=== PATIENT | female | born 1990 | race Hispanic/Latino ===

== ENCOUNTER 2022-03-12 16:27 | Emergency (ER) | payer SELFPAY ==
[2022-03-12] MEDS ORDERED: METOCLOPRAMIDE 10 MG/2mL INJ ONE (18:14)
[2022-03-12] MEDS ORDERED: DIPHENHYDRAMINE 50 MG/ML VIAL ONE (18:14)
[2022-03-12] MEDS ORDERED: NA CHLORIDE 0.9% 1,000 ML ONE (18:14)
[2022-03-12] MEDS ORDERED: dexAMETHasone 10 MG/ML VIAL ONE (18:14)
--- NOTE | 2022-03-12 18:52 | RAD REPORT ---
EXAM DESCRIPTION: CT - Head Brain Wo Cont - 03/12/2022 6:34 pm CLINICAL HISTORY: Headache COMPARISON: No comparisons TECHNIQUE: Axial 5 mm thick images of the head were obtained without IV contrast. All CT scans are performed using dose optimization technique as appropriate and may include automated exposure control or mA/KV adjustment according to patient size. FINDINGS: No intracranial hemorrhage, mass, edema or shift of mid-line structures. No acute infarcti on changes seen. No abnormal extra-axial fluid collections. Ventricles are normal. Mastoid air cells and visualized portions of the paranasal sinuses are clear. No acute bony findings. IMPRESSION: Negative non-contrast CT head examination.
--- NOTE | 2022-03-12 19:20 | EDPHYS ---
Physician Documentation [facility] Name: Chio Gomez Age: 31 yrs Sex: Female : 1990 Arrival Date: 03/12/2022 Time: 16:32 Bed 10 Private MD: ROGE Physician Aravind Bess HPI: 03/12 17:31 This 31 yrs old Female presents to ER via Ambulatory with complaints of pm1 Headache. 17:31 The patient complains of pain to the forehead, left occipital area and right occipital pm1 area. The patient describes the headache as aching, constant. Onset: The symptoms/episode began/occurred 1 hour(s) ago. Associated signs and symptoms: The patient has no apparent associated signs or symptoms, Pertinent negatives: dizziness, fever, nausea, vomiting. Severity of symptoms: in the emergency department the pain is unchanged. Headache History: Denies prior headaches. The symptoms are alleviated by nothing. the symptoms are aggravated by lights. The patient has not experienced similar symptoms in the past. The patient has not recently seen a physician. Historical: - Allergies: 17:38 No Known Allergies; iw - Home Meds: 17:38 None [Active]; iw - PMHx: 17:38 None; iw - Immunization history:: Adult Immunizations unknown. - Social history:: Smoking status: . ROS: 17:31 Constitutional: Negative for fever, chills, and weight loss, Cardiovascular: Negative pm1 for chest pain, palpitations, and edema, Respiratory: Negative for shortness of breath, cough, wheezing, and pleuritic chest pain, Abdomen/GI: Negative for abdominal pain, nausea, vomiting, diarrhea, and constipation. 17:31 Neuro: Positive for headache, Negative for dizziness, numbness, tingling, weakness. 17:31 All other systems are negative. Exam: 17:31 Constitutional: This is a well developed, well nourished patient who is awake, alert, pm1 and in no acute distress. Head/Face: Normocephalic, atraumatic. 17:31 Back: No spinal tenderness. No costovertebral tenderness. Full range of motion. Skin: Warm, dry with normal turgor. Normal color with no rashes, no lesions, and no evidence of cellulitis. MS/ Extremity: Pulses equal, no cyanosis. Neurovascular intact. Full, normal range of motion. 17:31 Cardiovascular: Exam negative for acute changes, Rate: normal, Rhythm: regular, Pulses: no pulse deficits are appreciated. 17:31 Respiratory: Exam negative for acute changes, respiratory distress, shortness of breath. 17:31 Neuro: Exam negative for acute changes, Orientation: is normal, Mentation: is normal, Cerebellar function: normal finger to nose testing, Motor: is normal, moves all fours, Gait: is steady. Vital Signs: 17:36 BP 108 / 82; Pulse 77; Resp 18; Temp 97.1; Pulse Ox 97% ; Pain 10/10; zm 17:38 Weight 76.2 kg; Height 5 ft. 9 in. (175.26 cm); zm 17:38 Body Mass Index 24.81 (76.20 kg, 175.26 cm) zm MDM: 17:14 Patient medically screened. pm1 19:19 Data reviewed: vital signs. Data interpreted: Pulse oximetry: on room air is 97 %. pm1 Interpretation: normal. Counseling: I had a detailed discussion with the patient and/or guardian regarding: the historical points, exam findings, and any diagnostic results supporting the discharge/admit diagnosis, radiology results, the need for outpatient follow up, to return to the emergency department if symptoms worsen or persist or if there are any questions or concerns that arise at home, Patient's pain is 0/10. 03/12 17:21 Order name: CT Head Brain wo Cont; Complete Time: 19:00 pm1 03/12 17:21 Order name: IV Saline Lock; Complete Time: 17:24 pm1 Administered Medications: 18:18 Drug: Decadron - Dexamethasone 10 mg Route: IVP; Site: right antecubital; iw 18:45 Follow up: Response: No adverse reaction iw 18:18 Drug: Benadryl (diphenhydrAMINE) 25 mg Route: IVP; Site: right antecubital; iw 19:00 Follow up: Response: No adverse reaction; Pain is decreased iw 18:18 Drug: Reglan (metoCLOPramide) 10 mg Route: IVP; Site: right antecubital; iw 19:00 Follow up: Response: No adverse reaction; Pain is decreased iw 18:18 Drug: NS 0.9% 1000 ml Route: IV; Rate: 1000 ml; Site: right antecubital; iw 19:00 Follow up: IV Status: Completed infusion iw Disposition Summary: 03/12/22 19:19 Discharge Ordered Location: Home pm1 Problem: new pm1 Symptoms: have improved pm1 Condition: Stable pm1 Diagnosis - Headache pm1 Followup: pm1 - With: Emergency Department - When: As needed - Reason: Worsening of condition Followup: pm1 - With: Private Physician - When: 2 - 3 days - Reason: Recheck today's complaints, Continuance of care, Re-evaluation by your physician Discharge Instructions: - Discharge Summary Sheet pm1 - General Headache Without Cause pm1 - Tension Headache, Adult pm1 Forms: - Medication Reconciliation Form pm1 - Thank You Letter pm1 - Antibiotic Education pm1 - Prescription Opioid Use pm1 Prescriptions: - Butalbital/aspirin/caffeine 50 mg / 325 mg/40 mg - take 1 tablet by ORAL route every 4 hours As needed; 20 tablet; Refills: 0, pm1 Product Selection Permitted Signatures: Dispatcher [employer] Payton Chauhan RN RN iw José Mireles NP [employer] pm1
--- NOTE | 2022-03-12 19:20 | ER ---
Nurse's Notes [facility] Name: Chio Gomez Age: 31 yrs Sex: Female : 1990 Arrival Date: 03/12/2022 Time: 16:32 Bed 10 Private MD: Diagnosis: Headache Presentation: 03/12 17:36 Chief complaint: Patient states: frontal headache 06/09. Coronavirus screen: Client iw presents with at least one sign or symptom that may indicate coronavirus-19. Ebola Screen: Patient negative for fever greater than or equal to 101.5 degrees Fahrenheit, and additional compatible Ebola Virus Disease symptoms Patient denies exposure to infectious person. Patient denies travel to an Ebola-affected area in the 21 days before illness onset. No symptoms or risks identified at this time. Initial Sepsis Screen: Does the patient meet any 2 criteria? No. Patient's initial sepsis screen is negative. Does the patient have a suspected source of infection? No. Patient's initial sepsis screen is negative. Risk Assessment: Do you want to hurt yourself or someone else? Patient reports no desire to harm self or others. Onset of symptoms was March 12, 2022. 17:36 Method Of Arrival: Ambulatory iw 17:36 Acuity: CARLOS 3 iw Triage Assessment: 18:00 Headache History: The patient has had previous headaches. General: Appears in no iw apparent distress. Behavior is calm, cooperative. Pain: Complains of pain in left occipital area and forehead and right occipital area Pain. 18:00 Pain: Also complains of no other associated symptoms. iw Historical: - Allergies: 17:38 No Known Allergies; iw - Home Meds: 17:38 None [Active]; iw - PMHx: 17:38 None; iw - Immunization history:: Adult Immunizations unknown. - Social history:: Smoking status: . Screenin:36 Abuse screen: Denies threats or abuse. Denies injuries from another. Nutritional iw screening: No deficits noted. Tuberculosis screening: No symptoms or risk factors identified. Fall Risk None identified. Assessment: 18:00 General: Appears in no apparent distress. Behavior is calm, cooperative. Pain: iw Complains of pain in right occipital area and left occipital area and forehead. Neuro: Level of Consciousness is awake, alert, obeys commands, Oriented to person, place, time, situation, Moves all extremities. Neuro: Reports headache frontal area. Cardiovascular: Patient's skin is warm and dry. Respiratory: Respiratory effort is even, unlabored, Respiratory pattern is regular, symmetrical. Derm: Skin is intact, is healthy with good turgor. Musculoskeletal: Range of motion: intact in all extremities. Vital Signs: 17:36 BP 108 / 82; Pulse 77; Resp 18; Temp 97.1; Pulse Ox 97% ; Pain 10/10; zm 17:38 Weight 76.2 kg; Height 5 ft. 9 in. (175.26 cm); zm 17:38 Body Mass Index 24.81 (76.20 kg, 175.26 cm) ED Course: 16:32 Patient arrived in ED. iw 17:11 José Mireles NP is PHCP. pm1 17:11 Aravind Bess MD is Attending Physician. pm1 17:25 Inserted saline lock: 20 gauge in right antecubital area, using aseptic technique. zm 17:38 Triage completed. iw 17:38 Payton Kaur, RN is Primary Nurse. iw 18:00 Arm band placed on. iw 18:00 Patient has correct armband on for positive identification. iw 18:35 CT Head Brain wo Cont In Process Unspecified. EDMS 19:36 No provider procedures requiring assistance completed. Patient did not have IV access iw during this emergency room visit. Administered Medications: 18:18 Drug: Decadron - Dexamethasone 10 mg Route: IVP; Site: right antecubital; iw 18:45 Follow up: Response: No adverse reaction iw 18:18 Drug: Benadryl (diphenhydrAMINE) 25 mg Route: IVP; Site: right antecubital; iw 19:00 Follow up: Response: No adverse reaction; Pain is decreased iw 18:18 Drug: Reglan (metoCLOPramide) 10 mg Route: IVP; Site: right antecubital; iw 19:00 Follow up: Response: No adverse reaction; Pain is decreased iw 18:18 Drug: NS 0.9% 1000 ml Route: IV; Rate: 1000 ml; Site: right antecubital; iw 19:00 Follow up: IV Status: Completed infusion iw Medication: 19:00 VIS not applicable for this client. iw Outcome: 19:19 Discharge ordered by . pm1 19:36 Discharged to home ambulatory, with family. iw 19:36 Condition: good 19:36 Discharge instructions given to patient, Instructed on discharge instructions, follow up and referral plans. medication usage, Demonstrated understanding of instructions, follow-up care, medications, Prescriptions given X 1. 19:37 Patient left the ED. iw Signatures: Dispatcher [employer] Payton Chauhan RN RN José Welch CUSTOMER SERVICE REPRESENTATIVE TELLER CUSTOMER SERVICE REPRESENTATIVE TELLER pm1 Iona Berg
[2022-03-12 19:51] VITALS: BP 108/82; TEMP 97.1; O2SAT 97
== END 2022-03-12 19:37 | disposition home or self-care (01) ==
LOC: ER 16:27
DX: R51.9 Headache, unspecified (principal)
CPT/HCPCS: 70450; J1100; J1200; J2765; J7030